=== PATIENT | male | born 1960 | race Caucasian/White ===

== ENCOUNTER 2024-05-09 10:06 | Emergency (ER) | payer MEDICAID, SELFPAY ==
[2024-05-09] VITALS (13 sets, daily range): BP systolic 103–155; BP diastolic 70–108; PULSE 0–94; RESP 14–23; TEMP 36.1–36.7; O2SAT 77–100; BMI 28.5
--- NOTE | 2024-05-09 10:36 | PD.EDRME ---
Rapid Medical Screening Exam [facility] Arrival date/time: 05/09/24 10:06 CC: Nausea vomiting HPI ongoing for 3 weeks also has a history of COPD is a diabetic, takes his insulin but does not monitor his blood sugars. Speaking in full sentences somewhat dramatic. Chief Complaint: Nausea/Vomiting/Diarrhea Time Seen by Provider: 05/09/24 10:33 Vital signs: Vital Signs Temperature 97.8 F 05/09/24 10:18 Pulse Rate 88 05/09/24 10:18 Respiratory Rate 22 H 05/09/24 10:18 Blood Pressure 138/81 H 05/09/24 10:18 Pulse Oximetry (%) 98 05/09/24 10:18 Oxygen Delivery Method Room Air 05/09/24 10:18
[2024-05-09 11:01] LABS: Base Excess, Venous 0 (-3-3); O2 Saturation, Venous 54 % (96-97); PCO2, Venous 31 mmHg (36-56); PO2, Venous 30 mmHg (15-58); pH, Venous 7.48 (7.33-7.66)
[2024-05-09 11:04] LABS: Basophils # (Auto) 0.1 Thou/mm3 (0.0-0.2); Basophils % (Auto) 2 % (0-2.5); Eosinophils % (Auto) 1 % (0-10); Hemoglobin 12.8 g/dL (13.5-16.0); Immature Granulocytes % (Auto) 0 % (0-0); Immature Granulocytes Auto 0.01 Thou/mm3 (0.00-0.00); Lymphocytes # (Auto) 1.2 Thou/mm3 (1.0-4.8); Lymphocytes % (Auto) 19 % (10-50); Mean Corpuscular HGB Conc 31.2 g/dl (31.0-37.0); Mean Corpuscular Volume 80 fL (80-100); Monocytes # (Auto) 0.8 Thou/mm3 (0.0-0.8); Monocytes % (Auto) 13 % (0-12); Neutrophils # (Auto) 4.2 Thou/mm3 (1.8-7.7); Neutrophils % (Auto) 65 % (37-80); Nucleated Red Blood Cell % 0 /100 WBC (0); Platelet Count 278 Thou/mm3 (140-440); RDW Standard Deviation 51.1 fL (35.1-43.9); Red Blood Count 5.12 Miln/mm3 (4.50-5.90); White Blood Count 6.4 Thou/mm3 (3.8-10.6)
[2024-05-09 11:05] LABS: Beta Hydroxybutyrate 0.4 mmol/L (<0.6)
[2024-05-09 11:21] LABS: Alanine Aminotransferase 27 U/L (10-49); Albumin, Serum 3.5 gm/dL (3.4-4.8); Albumin/Globulin Ratio 1.3 (1.2-2.2); Alkaline Phosphatase 73 U/L (46-116); Anion Gap 12 (7-16); Aspartate Amino Transferase 54 U/L (0-34); BUN/Creatinine Ratio 20 Ratio (12-20); Blood Urea Nitrogen 20 mg/dL (9-23); Calcium 9.6 mg/dL (8.3-10.6); Carbon Dioxide 21.2 mMol/L (20.0-31.0); Chloride 106 mMol/L (98-107); Estimated Creatinine Clearance 91.7 mL/min (>60); Globulin 2.8 gm/dL (2.3-3.5); Glucose 174 mg/dL (74-106); Osmolality,Calculated 284 (275-295); Potassium 5.3 mMol/L (3.4-5.1); Sodium 139 mMol/L (136-145); Total Protein 6.3 gm/dL (5.7-8.2); eGFR > 60 See Note
--- NOTE | 2024-05-09 15:43 | PC.NURSE ---
pt called from lobby x1 with no answer.
[2024-05-09] MEDS: SODIUM CHLORIDE 0.9% 1000 ML 1,000 ML 999 ML IV (16:44)
--- NOTE | 2024-05-09 17:05 | XR_ITS ---
Examination: CT abdomen with intravenous contrast CT pelvis with intravenous contrast 2-D coronal reconstructions 2-D sagittal reconstructions Date and time of exam:May 09, 20245 hrs. Indications: Onset abdominal pain today. CTDI: vol (mGy) 9.11 DLP: (mGycm) 522 Technique: Multiple axial sections of the abdomen and pelvis have been obtained. 64 slice high-resolution scanner used. 3 mm axial sections have been obtained, post intravenous injection 60 cc [id number] 2-D sagittal, coronal reconstructions obtained. Low dose protocols were performed. One or more of the following dose reduction techniques were used; automated exposure control, adjustment of the mA and/or KV according to patient size, use of iterative reconstruction technique. Findings: Pneumonia right base with moderate right pleural effusion Cirrhosis, liver nodular in contour Significant ascites Absent gallbladder Spleen is not enlarged No pancreatic mass Abdominal aortic calcification no longer present dilatation, no hydronephrosis Diffuse wall thickening involving the colon and small bowel loops Urinary bladder intact Mild prostatomegaly Fluid containing left inguinal hernia Impression: Pneumonia right base with moderate right pleural effusion Cirrhosis Significant ascites Hepatic colopathy enteropathy No bowel obstruction
--- NOTE | 2024-05-09 17:06 | PD.EDABDPN ---
ED Abdominal Pain RME/HPI General Chief Complaint: Nausea/Vomiting/Diarrhea Stated complaint: NAUSEA/VOMIT X 3 WKS; ABD PAIN; FEET SWELL Time seen by provider: 05/09/24 10:33 Arrival date/time: 05/09/24 10:06 RME / HPI RME / HPI narrative: 64-year-old male patient with significant history of hypertension, diabetes mellitus, came in for evaluation regarding nausea vomiting cough, shortness of breath,,ongoing for 3 weeks, nonbloody, associated with diffuse abdominal pain. Also complained of bilateral feet swelling. Denies any fever denies any diarrhea or constipation. Speaking in full sentences somewhat dramatic. Related Data Home Medications ?Medication ?Instructions ?Recorded ?Confirmed albuterol sulfate 2.5 mg/3 mL 2.5 mg inhalation Q6H PRN 07/18/23 07/18/23 (0.083 %) solution for nebulization Shortness Of Breath allopurinol 100 mg tablet 100 mg PO QDAY 07/18/23 07/18/23 aspirin 81 mg tablet,delayed 81 mg PO QDAY 07/18/23 07/18/23 release atorvastatin 80 mg tablet (Lipitor) 80 mg PO QDAY 07/18/23 07/18/23 carvedilol 3.125 mg tablet (Coreg) 3.125 mg PO BID 07/18/23 07/18/23 escitalopram oxalate 10 mg tablet 10 mg PO QDAY 07/18/23 07/18/23 (Lexapro) finasteride 5 mg tablet 5 mg PO QDAY 07/18/23 07/18/23 furosemide 40 mg tablet (Lasix) 40 mg PO QDAY 07/18/23 07/18/23 insulin glargine 100 unit/mL 15 unit subcut QDAY 07/18/23 07/18/23 subcutaneous solution insulin lispro 100 unit/mL 1 sliding scale dose subcut 07/18/23 07/18/23 subcutaneous solution (Humalog USEASDIRECTD U-100 Insulin) nitroglycerin 0.4 mg sublingual 0.4 mg buccal PRN Chest Pain 07/18/23 tablet ticagrelor 90 mg tablet (Brilinta) 90 mg PO BID 07/18/23 07/18/23 Previous Rx's ?Medication ?Instructions ?Recorded ketoconazole 2 % topical cream 1 applic top BID 30 days #1 tube 07/20/23 flash glucose scanning reader #1 ea 07/21/23 (FreeStyle Edison 2 [facility]) flash glucose sensor (FreeStyle #1 ea 07/21/23 Edison 2 Sensor kit) bumetanide 2 mg tablet 2 mg PO BID 30 days #60 tabs 07/23/23 melatonin 1 mg tablet 1 mg PO HS PRN sleep #30 tabs 07/23/23 midodrine 5 mg tablet 15 mg (3 x 5 mg) PO TID 30 days 07/23/23 #270 tabs multivitamin with folic acid 400 1 tab PO QDAY 30 days #30 tabs 07/23/23 mcg tablet (Tab-A-Benedicto) nicotine 14 mg/24 hr daily 14 mg topical QDAY 30 days #28 ea 07/23/23 transdermal patch spironolactone 25 mg tablet 12.5 mg (1/2 x 25 mg) PO BID 30 07/25/23 days #30 tabs amoxicillin 875 mg-potassium 1 tab PO BID #14 tabs 05/09/24 clavulanate 125 mg tablet doxycycline monohydrate 100 mg 100 mg PO BID #14 caps 05/09/24 capsule Allergies Allergy/AdvReac Type Severity Reaction Status Date / Time No Known Allergies Allergy Verified 07/17/23 22:28 Review of Systems Review of Systems Narrative Review of Systems: Review of system reviewed and within normal limits except mentioned in HPI ED Exam Narrative Physical exam: VITAL SIGNS: Reviewed. GENERAL APPEARANCE: Alert and interactive, follows commands, no acute distress, HEAD AND FACE: Non-traumatic. ENT: PERRL, pink conjunctivitis, eyelid no trauma, Mucous membrane moist. NECK: Supple, nontender, no nuchal rigidity. CHEST: No tenderness, no crepitus, no paradoxical movement, no retractions. LUNGS: Clear, well ventilated, symmetric, no rales, no wheezing, no ronchi, no stridor, good breath sounds bilaterally. HEART: Regular rate, regular rhythm, no murmur, no gallops. ABDOMEN: Soft, positive bowel sounds, nondistended, no guarding, nontender, no rebound, no masses, RECTAL: Deferred. GENITAL: Deferred. NEUROLOGICAL: Gross motor function intact sensory function intact, Appropriate for age. MUSCULOSKELETAL: low back nontender, full range of motion. EXTREMITIES: +1 bilateral lower leg swelling, nontender, full range of motion. SKIN: Color pink, dry, no rash, no lacerations, no abrasions, no contusions. LYMPHATICS: Deferred. Course Quality Measures none Orders Category Date Time Status CT Screening NOW Care 05/09/24 17:05 Active Saline [Insert IV] NOW Care 05/09/24 10:34 Active Diet Regular Diet 05/10/[address] abdomen pelvis w con Stat Exams 05/09/24 17:05 Completed BNP [B-Type Natriuretic Peptide] Stat Lab 05/09/24 10:50 Completed Beta Hydroxybutyrate Stat Lab 05/09/24 10:50 Completed CBC Stat Lab 05/09/24 10:50 Completed CMP [Comprehensive Metabolic Panel] Stat Lab 05/09/24 10:50 Completed Urinalysis, C/S if Indicated Stat Lab 05/09/24 10:35 Ordered VBG [Venous Blood Gas] Stat Lab 05/09/24 10:50 Completed Amoxicillin/Pot Clav 875 [Augmentin 875] Med 05/09/24 22:24 Discontinued 1 tab PO X1 ONE Doxycycline [Vibramycin] Med 05/09/24 22:24 Discontinued 100 mg PO X1 ONE Furosemide Inj [Lasix Inj] Med 05/09/24 17:05 Discontinued 40 mg IVP X1 ONE Ondansetron Odt [Zofran Odt] Med 05/09/24 10:34 Discontinued 4 mg PO X1 ONE Sodium Chloride 0.9% 1000 ml [Ns] 1,000 ml Med 05/09/24 10:35 Discontinued IV 999 mls/hr Vital Signs Vital signs: Vital Signs Temperature 97.8 F 05/09/24 10:18 Pulse Rate 88 05/09/24 10:18 Respiratory Rate 22 H 05/09/24 10:18 Blood Pressure 138/81 H 05/09/24 10:18 Pulse Oximetry (%) 98 05/09/24 10:18 Oxygen Delivery Method Room Air 05/09/24 10:18 Abdominal Pain MDM MDM Narrative MDM Narrative:: 64-year-old male patient with significant history of hypertension, diabetes mellitus, came in for evaluation regarding nausea vomiting cough, shortness of breath,,ongoing for 3 weeks, nonbloody, associated with diffuse abdominal pain. Also complained of bilateral feet swelling. Denies any fever denies any diarrhea or constipation. Speaking in full sentences somewhat dramatic. Patient's workup showed no leukocytosis, CMP potassium 5.3 total bili of 2.0, AST of 54, BNP of 1426. The rest of the labs unremarkable. CT scan of the abdomen and pelvis showed Pneumonia right base with moderate right pleural effusion Cirrhosis Significant ascites Hepatic colopathy enteropathy No bowel obstruction Patient received IV Lasix, Augmentin and doxycycline. Patient was noted to be ambulatory unaided, and wanted to go home. Currently patient is satting 100% on room air. Patient data External records reviewed:: None Clinical information provided by:: patient Social determinants that could affect healthcare access:: none Patient has the following chronic illnesses:: Congestive heart failure hypertension How is presenting disease/condition affected by chronic disease/condition?: exacerbated by Evaluation data The following diagnostics were reviewed and interpreted by me:: lab results and radiology exam(s) Lab and/or radiology exams considered but not ordered:: None Interpretation Summary: See results in [facility] Medications / Prescriptions Medications or Prescriptions considered but not ordered:: None Medication administrations:: Medication Administration History Discontinued Medications Amoxicillin/Clavulanate Potassium (Amoxicillin/Pot Clav 875 Tablet) 1 tab PO X1 ONE Stop: 05/09/24 22:25 Doxycycline Hyclate (Doxycycline 100 Mg Tablet) 100 mg PO X1 ONE Stop: 05/09/24 22:25 Furosemide (Furosemide Inj 10 Mg/Ml 4ml Vial) 40 mg IVP X1 ONE Stop: 05/09/24 17:06 Last Admin: 05/09/24 17:38 Dose: 40 mg Documented By: JUDAH Sodium Chloride (Ns) 1,000 mls @ 999 mls/hr IV .Q1H1M ONE Stop: 05/09/24 11:35 Last Infusion: 05/09/24 17:48 Dose: Infused Documented By: Admin: 05/09/24 16:44 Dose: 999 mls/hr Documented By: JUDAH Ondansetron HCl (Ondansetron Odt 4 Mg Tabrap) 4 mg PO X1 ONE; Protocol Stop: 05/09/24 10:35 Last Admin: 05/09/24 16:44 Dose: Not Given Documented By: JUDAH Non-Admin Reason: Patient Refused IV Lasix, Zofran, IV fluids for hydration, doxycycline or Augmentin Consultations Consultation(s) initiated? (list below): No Diagnosis Differential diagnosis abdominal pain: abdominal pain and other (Shortness of breath, pneumonia, pleural effusion) Most likely diagnosis given after review of the tests above:: Pneumonia, pleural effusion, Admission Indicated Admission indicated?: not indicated Explain why admission is indicated or not indicated:: Stable for charge Admission Request Was there a request for admission?: No Disposition Plan Disposition Plan: Discharge Discharge Attestation Discharge Attestation: The patient was given an opportunity to ask questions and understood the discharge instructions. Discharge instructions specifically effects, indications for sooner follow up or return to the emergency department, and the expected course of current diagnosis. Patient condition: Stable Discharge Plan Plan Patient Disposition: HOME (Self Care) Disposition Comment: Stable Prescriptions/Referrals Prescriptions/Med Rec: New doxycycline monohydrate 100 mg capsule 100 mg PO BID Qty: 14 0RF amoxicillin-pot clavulanate 875-125 mg tablet 1 tab PO BID Qty: 14 0RF No Action albuterol sulfate 2.5 mg /3 mL (0.083 %) Solution For Nebulization 2.5 mg INHALATION Q6H PRN (Reason: Shortness Of Breath) allopurinol 100 mg Tablet 100 mg PO QDAY aspirin 81 mg Tablet,Delayed Release (Dr/Ec) 81 mg PO QDAY Brilinta 90 mg Tablet 90 mg PO BID carvedilol [Coreg] 3.125 mg Tablet 3.125 mg PO BID Rx Instructions: must administer with a meal/food. *Hold SBP less than 110 finasteride 5 mg Tablet 5 mg PO QDAY insulin glargine 100 unit/mL Solution 15 unit SUBCUT QDAY insulin lispro [Humalog U-100 Insulin] 100 unit/mL Solution 1 sliding scale dose SUBCUT USEASDIRECTD furosemide [Lasix] 40 mg Tablet 40 mg PO QDAY escitalopram oxalate [Lexapro] 10 mg Tablet 10 mg PO QDAY atorvastatin [Lipitor] 80 mg Tablet 80 mg PO QDAY nitroglycerin 0.4 mg Tablet, Sublingual 0.4 mg BUCCAL MDD x3 PRN (Reason: Chest Pain) ketoconazole 2 % Cream 1 applic top BID 30 Days Qty: 1 3RF (DME) FreeStyle Edison 2 Sensor Kit See Rx Instructions .Route Qty: 1 12RF Rx Instructions: As directed (DME) FreeStyle Edison 2 [facility] Misc See Rx Instructions .Route Qty: 1 0RF Rx Instructions: As directed bumetanide 2 mg tablet 2 mg PO BID 30 Days Qty: 60 3RF midodrine 5 mg tablet 15 mg PO TID 30 Days Qty: 270 3RF Rx Instructions: hold for systolic blood pressure >140 multivitamin with folic acid [Tab-A-Benedicto] 400 mcg Tablet 1 tab PO QDAY 30 Days Qty: 30 3RF nicotine 14 mg/24 hr patch 24 hour 14 mg topical QDAY 30 Days Qty: 28 3RF melatonin 1 mg tablet 1 mg PO HS PRN (Reason: sleep) Qty: 30 3RF spironolactone 25 mg Tablet 12.5 mg PO BID 30 Days Qty: 30 3RF Referrals: No Primary/Family,Physician [Primary Care Provider] - In 1 week Problem List Clinical Impression: Pneumonia, Pleural effusion Patient/Caregiver Discharge Instructions Discharge Activity: activity as tolerated Education Materials: ED Pleural Effusion, ED Pneumonia (Adult) Additional Instructions: Thank you for the opportunity for serving you today. You are stable for discharged . You are advised to: Follow-up with your PCP in 1 to 2 days Return to ED for worsening of symptoms Print Language: Nicaraguan Stand Alone Forms: Estela Award Info., Patient Portal Info Letter PA/[employer] Supervising Physician PA/[employer] Supervising Physician: MD Guillermo
[2024-05-09] MEDS: FUROSEMIDE INJ 10 MG/ML 4ML VIAL 40 MG IVP (17:38)
[2024-05-09 18:12] LABS: B-Type Natriuretic Peptide 1426 pg/mL (0-100)
--- NOTE | 2024-05-09 22:23 | PC.NURSE ---
Got pt up. Pt is able tyo ambulate without assist..
[2024-05-09] MEDS: AMOXICILLIN/POT CLAV 875 TABLET 1 TAB PO (22:40)
[2024-05-09] MEDS: DOXYCYCLINE 100 MG TABLET PO (22:40)
[2024-05-09 22:45] LABS: Collection Type, Urine Clean Catch
[2024-05-09 23:12] LABS: Bilirubin,Urine Negative (Negative); Blood,Urine 1+ (Negative); Clarity,Urine Clear (Clear/Hazy); Color,Urine Colorless (Lt Yel-Yel); Culture Indicated,Urine Not Indicated; Glucose, Urine Negative (Negative); Hyaline Casts,Urine < 1 /hpf (0-1); Ketones,Urine Negative (Negative); Leukocyte Esterase,Urine Negative (Negative); Nitrite,Urine Negative (Negative); Protein,Urine Negative (Neg - Trace); RBC,Urine 4 /hpf (0-3); Specific Gravity,Urine 1.013 (1.001-1.035); Squamous Epithelial Cell,Urine < 1 /hpf (0-5); Urobilinogen,Urine Negative mg/dL (0.0-1.0); WBC,Urine < 1 /hpf (0-5)
--- NOTE | 2024-05-10 07:37 | PC.CC ---
Renata COREY was consulted by block making machine operator Alicia regarding a ride for the patient. ASW arranged transportation for patient via [employer].
== END 2024-05-09 23:15 | disposition home or self-care (01) ==
PROVIDERS: Nurse Practitioner Family; Registered Nurse General Practice; Emergency Provider Emergency Medicine
DX: J18.9 Pneumonia, unspecified organism (principal); E11.9 Type 2 diabetes mellitus without complications; I10 Essential (primary) hypertension; J90 Pleural effusion, not elsewhere classified
CPT/HCPCS: 36415; 74177; 80053; 81001; 82010; 82803; 83880; 85025; 96361; 96374; 99285; A4649; J1940; J7030; Q9967; A9270